=== PATIENT | male | born 1945 | race Caucasian/White ===

== ENCOUNTER 2016-10-04 09:20 | Day surgery (SDC) | payer MEDICARE, OTHER ==
--- NOTE | ~2016-10-04 | EGD ---
EGD REPORT [facility] [address] [address] NAME: GIULIANA LOVELL : [birth year] [place] : [place] [facility] [place] [id number] AGE: 70 ADM/REG DATE : 10/04/16 MR#: [id number] REPORT SERV DATE: 10/04/16 DICTATED BY: DATE: REPORT STATUS : Draft TRANSCRIBED BY: [employer] DATE: 10/04/16 [facility] Patient Name: Giuliana Lovell Date of : 1945 Attending MD: JHON LU MD Procedure Date No Time: 10/04/2016 Procedure: Colonoscopy Indications: Clinically significant diarrhea of unexplained origin Referring MD: JEFFREY CAMPBELL, ADI العلي MD Medicines: Monitored Anesthesia Care Complications: No immediate complications. Procedure: Pre-Anesthesia Assessment: - ASA Grade Assessment: III - A patient with severe systemic disease. After I obtained informed consent, the scope was passed under direct vision. Throughout the procedure, the patient's blood pressure, pulse, and oxygen saturations were monitored continuously. The PCF [id number] was introduced through the anus and advanced to the cecum, identified by appendiceal orifice and ileocecal valve. The colonoscopy was performed without difficulty. The patient tolerated the procedure well. The quality of the bowel preparation was adequate. Findings: The perianal and digital rectal examinations were normal. Multiple small and large-mouthed diverticula were found in the entire colon. No other significant abnormalities were identified in a careful examination of the remainder of the colon. There is no endoscopic evidence of erythema, mass, polyps or ulcerations in the entire colon. Biopsies were taken with a cold forceps from the entire colon for evaluation of microscopic colitis. No additional abnormalities were found on retroflexion. Impression: - Diverticulosis in the entire examined colon. Recommendation: - Patient has a contact number available for emergencies. The signs and symptoms of potential delayed complications were discussed with the patient. Return to normal activities tomorrow. Written discharge instructions were provided to the patient. - High fiber diet. - Continue present medications. - Await pathology results. EGD REPORT [facility] [address] [place], [place] [address] [address] NAME: GIULIANA LOVELL JR : [birth year] STATUS : [facility]#: [id number] AGE: 70 ADM/REG DATE : 10/04/16 MR#: [id number] REPORT SERV DATE: 10/04/16 DICTATED BY: DATE: REPORT STATUS : Draft TRANSCRIBED BY: [employer] DATE: 10/04/16 - Repeat colonoscopy in 2 years for surveillance. Procedure Code(s): --- Professional --- 90494, Colonoscopy, flexible, proximal to splenic flexure; with biopsy, single or multiple Diagnosis Code(s): --- Professional --- K57.30, Diverticulosis of large intestine without perforation or abscess without bleeding R19.7, Diarrhea, unspecified CPT copyright 2013 [employer]. All rights reserved. The codes documented in this report are preliminary and upon hand driller review may be revised to meet current compliance requirements. JHON LU MD 10/04/2016 11:21 AM This report has been signed electronically. Number of Addenda: 0 Note Initiated On: 10/04/2016 10:48 AM Scope Withdrawal Time 0 hours 9 minutes 18 seconds [id number] [facility] [place] [address]
--- NOTE | ~2016-10-04 | EGD ---
EGD REPORT [facility] [address] [address] NAME: GIULIANA LOVELL JR : [birth year] STATUS : [facility]#: [id number] AGE: 70 ADM/REG DATE : 10/04/16 MR#: [id number] REPORT SERV DATE: 10/04/16 DICTATED BY: DATE: REPORT STATUS : Draft TRANSCRIBED BY: [employer] DATE: 10/04/16 [facility] Patient Name: Giuliana Lovell Date of : 1945 Attending MD: JHON LU MD Procedure Date No Time: 10/04/2016 Procedure: Upper GI endoscopy Indications: Esophageal reflux symptoms that recur despite appropriate therapy, Nausea Referring MD: ADI العلي MD, JEFFREY CAMPBELL Medicines: Monitored Anesthesia Care Complications: No immediate complications. Procedure: Pre-Anesthesia Assessment: - ASA Grade Assessment: III - A patient with severe systemic disease. After obtaining informed consent, the endoscope was passed under direct vision. Throughout the procedure, the patient's blood pressure, pulse, and oxygen saturations were monitored continuously. The GIF H190 [id number] was introduced through the mouth, and advanced to the third part of duodenum. The upper GI endoscopy was accomplished without difficulty. The patient tolerated the procedure well. 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 Biopsies were taken with a cold forceps for histology. No other significant abnormalities were identified in a careful examination of the esophagus. There is no endoscopic evidence of Proctor's esophagus, areas of erosion, hiatus hernia, ulcerations or varices in the entire esophagus. A single diminutive sessile polyp was found in the cardia. The polyp was removed with a cold biopsy forceps. Resection and retrieval were complete. Patchy mildly erythematous mucosa without bleeding was found in the gastric antrum. Biopsies were taken with a cold forceps for histology. No other significant abnormalities were identified in a careful examination of the stomach. There is no endoscopic evidence of mucosal abnormalities, ulceration, varices or stenosis in the entire examined stomach. The examined duodenum was normal. Biopsies were taken with a cold forceps for histology. There is no endoscopic evidence of inflammation, mucosal abnormalities or ulceration in the entire examined duodenum. The cardia and gastric fundus were otherwise normal on retroflexion. EGD REPORT [address] [address] NAME: GIULIANA LOVELL JR : [birth year] STATUS : [facility]#: [id number] AGE: 70 ADM/REG DATE : 10/04/16 MR#: [id number] REPORT SERV DATE: 10/04/16 DICTATED BY: DATE: REPORT STATUS : Draft TRANSCRIBED BY: [employer] SERVICES DATE: 10/04/16 The Z-line was regular and was found 42 cm from the incisors. 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 Biopsied. - A single gastric polyp. Resected and retrieved. - Erythematous mucosa in the antrum. Biopsied. - Normal examined duodenum. Biopsied. Recommendation: - Patient has a contact number available for emergencies. The signs and symptoms of potential delayed complications were discussed with the patient. Return to normal activities tomorrow. Written discharge instructions were provided to the patient. - Return to previous diet. - Discharge patient to home. - Continue present medications. - Await pathology results. Procedure Code(s): --- Professional --- 67559, Esophagogastroduodenoscopy, flexible, transoral; with biopsy, single or multiple Diagnosis Code(s): --- Professional --- Q39.4, Esophageal web K31.7, Polyp of stomach and duodenum K31.9, Disease of stomach and duodenum, unspecified K21.9, Gastro-esophageal reflux disease without esophagitis R11.0, Nausea CPT copyright 2013 [employer]. All rights reserved. The codes documented in this report are preliminary and upon stain sprayer review may be revised to meet current compliance requirements. JHON LU MD 10/04/2016 11:02 AM This report has been signed electronically. Number of Addenda: 0 Note Initiated On: 10/04/2016 10:49 AM Scope Withdrawal Time 0 hours 0 minutes 0 seconds [id number] [id number]
[~2016-10-04 09:20] MED LIST: A-REDS PO; ASAB PO; BYSTOLIC5 MG PO; CARDIZEM LA180 MG PO; CYCLOSPORIN PO; CYCLOSPORINE100 MG PO; IMU PO; L40 PO; PRED50B PO; WELLSR100 PO; ZOL100 PO
== END 2016-10-04 23:59 | disposition home or self-care (01) ==
LOC: DMU 09:20
PROVIDERS: Internal Medicine Gastroenterology
PROC: 0DB68ZX Excision of Stomach, Via Natural or Artificial Opening Endoscopic, Diagnostic (ICD-10-PCS; 2016-10-04)
PROC: 0DB78ZX Excision of Stomach, Pylorus, Via Natural or Artificial Opening Endoscopic, Diagnostic (ICD-10-PCS; 2016-10-04)
PROC: 0DB38ZX Excision of Lower Esophagus, Via Natural or Artificial Opening Endoscopic, Diagnostic (ICD-10-PCS; 2016-10-04)
PROC: 0DBE8ZX Excision of Large Intestine, Via Natural or Artificial Opening Endoscopic, Diagnostic (ICD-10-PCS; principal; 2016-10-04 11:30)
PROC: 0DB98ZX Excision of Duodenum, Via Natural or Artificial Opening Endoscopic, Diagnostic (ICD-10-PCS; 2016-10-04 11:30)
DX: K29.50 Unspecified chronic gastritis without bleeding (principal); K57.30 Diverticulosis of large intestine without perforation or abscess without bleeding; Q39.4 Esophageal web; K31.9 Disease of stomach and duodenum, unspecified; K21.9 Gastro-esophageal reflux disease without esophagitis; I45.10 Unspecified right bundle-branch block; J45.909 Unspecified asthma, uncomplicated; E78.00 Pure hypercholesterolemia, unspecified; I10 Essential (primary) hypertension; F41.9 Anxiety disorder, unspecified; F32.9 Major depressive disorder, single episode, unspecified; Z94.0 Kidney transplant status
CPT/HCPCS: 88305